=== PATIENT | male | born 1995 | race Caucasian/White ===

== ENCOUNTER 2019-04-30 05:19 | Day surgery (SDC) | payer OTHER ==
[2019-04-30] MEDS ORDERED: ALBUTEROL SULFATE 0.083% NEB 2.5 MG/3 ML AMPUL NEB ONE (05:51)
[2019-04-30] MEDS ORDERED: FENTANYL CITRATE INJ/PF 250 MCG/5 ML AMPULE ONE (07:04)
[2019-04-30] MEDS ORDERED: LIDOCAINE 2% INJ-PF (100 MG/5 ML) SYRINGE ONE (07:04)
[2019-04-30] MEDS ORDERED: PROPOFOL INJ 200 MG/20 ML VIAL IV ONE (07:05)
[2019-04-30] MEDS ORDERED: HYDROMORPHONE HCL INJ/PF 2 MG/ML AMPULE ONE (07:05)
[2019-04-30] MEDS ORDERED: MIDAZOLAM 2 MG/2 ML INJ ONE (07:05)
[2019-04-30] MEDS ORDERED: BUPIVACAINE HCL 0.5 % INJ/PF 30 ML SDV ONE (07:16)
[2019-04-30] MEDS ORDERED: CEFAZOLIN 2 GM/D5W RTU 2 GM/50 ML RTUPB IV ONE (07:20)
[2019-04-30] MEDS ORDERED: DIPHENHYDRAMINE HCL 50 MG/ML VIAL IV PRN (09:05)
[2019-04-30] MEDS ORDERED: FENTANYL CITRATE INJ/PF 100 MCG/2 ML AMPUL IV PRN ×3 (09:05)
[2019-04-30] MEDS ORDERED: MEPERIDINE HCL/PF INJ 25 MG/1 ML DISP.SYRIN IV PRN (09:05)
[2019-04-30] MEDS ORDERED: PROMETHAZINE HCL INJ 25 MG/1 ML VIAL IV PRN ×2 (09:05)
[2019-04-30] MEDS ORDERED: LIDOCAINE 2%/EPINEPHRINE INJ 20 ML VIAL ONE (09:37)
[2019-04-30] MEDS ORDERED: LIDOCAINE 2% INJ (20 MG/ML) 20 ML MDV ONE (09:37)
[2019-04-30] MEDS ORDERED: ROPIVACAINE HCL 0.5% INJ/PF (5 MG/1 ML) 30 ML SDV ONE (09:37)
[2019-04-30] MEDS ORDERED: OXYCODONE-ACETAMINOPHEN 5-325 MG TABLET PO PRN (09:55)
[2019-04-30] MEDS ORDERED: ONDANSETRON HCL INJ/PF 4 MG/2 ML SDV IV PRN (09:56)
--- NOTE | 2019-04-30 10:20 | OPERATIVE REPORT E ---
Operative Report NAME: SUSAN CARDOZA : 1995 AGE: 23Y DATE OF SURGERY: 04/30/2019 ROOM: PREOPERATIVE DIAGNOSIS: Left wrist scaphoid nonunion with collapse. POSTOPERATIVE DIAGNOSIS: Left wrist scaphoid nonunion with collapse. OPERATION: Left wrist correction of scaphoid nonunion with autogenous distal radius bone graft. SURGEON: NORA PORTILLO M.D. ANESTHESIA: General. BLOOD LOSS: Minimal. COMPLICATIONS: None. IMPLANT: Standard Acutrak screw. 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 It went unrecognized. He returned with persistent pain. It was noted he had a scaphoid nonunion with bone loss and collapse of the scaphoid. DESCRIPTION OF PROCEDURE: Following the induction of general anesthetic and administration of antibiotics, the patient was positioned supine on the operating room table. Bony prominences were padded. A tourniquet was placed proximally on the left arm but not inflated. The left upper extremity was sterilely prepped with ChloraPrep and draped in standard fashion. The arm was exsanguinated and the tourniquet inflated to 100 mm above systolic pressure. Volar approach to the scaphoid was performed. Sharp incision through skin and blunt dissection to the subcutaneous tissue. Care was taken to identify and protect the radial artery. The wrist capsule was identified, as was the pronator quadratus. The pronator was taken off in an L-shaped flap. The wrist ligaments were entered with a ligament-splitting curvilinear approach. At this point the scaphoid was identified. The nonunion site was found. There was sclerosis at the end of the scaphoid and significant bone loss. In order to correct the alignment the wrist was flexed. The 0.062 Tyesha wire was placed on the radius to the lunate, putting the lunate back in its normal position. Extending the wrist over a bolster demonstrated the extent of the deformity of the scaphoid. A rongeur was used to take off the sclerotic bone ends. Curettes were used to curette both ends of the scaphoid. Distal radius bone graft was harvested. A cortical cancellous piece of the volar cortex was removed with osteotomes. Additional cancellous bone graft was harvested with curettes and impacted into both sides of the scaphoid. The cortical cancellous piece was placed as a trapdoor to maintain the correct alignment of the scaphoid. A standard Acutrak screw was then placed in retrograde fashion. It was buried beneath the articular cartilage of the scaphotrapezial joint. The wound was irrigated. The wrist capsule was repaired side to side using 4-0 FiberLoop suture. The pronator was repaired back to the radius with 3-0 Vicryl. Subcutaneous tissue was closed with 3-0 Vicryl. Skin was reapproximated with a Monocryl suture using subcuticular technique and Steri-Strips. A bulky sterile dressing was then applied. The patient tolerated the procedure well without complications and was brought to the recovery room in stable condition. DICTATING PHYSICIAN: NORA PORTILLO M.D. [id number] PHY#: [id number] ID: [id number] JOB#: [id number] ACCT: [id number] cc:NORA PORTILLO M.D. >
[2019-04-30 12:16] VITALS: BP 127/80
--- NOTE | 2019-04-30 15:01 | RADIOLOGY REPORT (SQ) ---
EXAM DESCRIPTION: WRIST LEFT 2 VIEWS; NO CHG FLUORO COMPLETED DATE/TIME: 04/30/2019 2:46 pm; 04/30/2019 2:45 pm REASON FOR STUDY: LEFT SCAPHOID CORRECTION ASST WITH FLUORO IN OR S62.022K DISP FX OF MID 3RD OF NA TORIE BONE OF L WRS, 7THK COMPARISON: None. FLUOROSCOPY TIME: 34 seconds. 3 images saved to PACS. TECHNIQUE: Intra-operative images acquired during surgical procedure to evaluate progress. NUMBER OF IMAGES: 3 images. LIMITATIONS: None. FINDINGS: Images of the wrist acquired during surgical procedure. IMPRESSION: IMAGE(S) OBTAINED DURING PROCEDURE. COMMENT: Quality ID 145: Final reports for procedures using fluoroscopy that document radiation exp osure indices, or exposure time and number of fluorographic images (if radiation exposure indices are not available) Please consult full operative report of the attending physician for description of the procedure. TECHNICAL DOCUMENTATION: JOB ID: [id number] [employer]- All Rights Reserved Reading location - IP/workstation name: [email or web address]
--- NOTE | 2019-04-30 15:01 | RADIOLOGY REPORT (SQ) ---
EXAM DESCRIPTION: WRIST LEFT 2 VIEWS; NO CHG FLUORO COMPLETED DATE/TIME: 04/30/2019 2:46 pm; 04/30/2019 2:45 pm REASON FOR STUDY: LEFT SCAPHOID CORRECTION ASST WITH FLUORO IN OR S62.022K DISP FX OF MID 3RD OF NA TORIE BONE OF L WRS, 7THK COMPARISON: None. FLUOROSCOPY TIME: 34 seconds. 3 images saved to PACS. TECHNIQUE: Intra-operative images acquired during surgical procedure to evaluate progress. NUMBER OF IMAGES: 3 images. LIMITATIONS: None. FINDINGS: Images of the wrist acquired during surgical procedure. IMPRESSION: IMAGE(S) OBTAINED DURING PROCEDURE. COMMENT: Quality ID [id number]: Final reports for procedures using fluoroscopy that document radiation exp osure indices, or exposure time and number of fluorographic images (if radiation exposure indices are not available) Please consult full operative report of the attending physician for description of the procedure. TECHNICAL DOCUMENTATION: JOB ID: [id number] [employer]- All Rights Reserved Reading location - IP/workstation name: [email or web address]
[2019-04-30] MEDS ORDERED: GLYCOPYRROLATE 1 MG/5 ML VIAL ONE (18:12)
[2019-04-30] MEDS ORDERED: SUCCINYLCHOLINE CHLORIDE INJ 200 MG/10 ML VIAL ONE (18:12)
[2019-04-30] MEDS ORDERED: ONDANSETRON HCL INJ/PF 4 MG/2 ML SDV ONE (18:12)
== END 2019-04-30 11:45 | disposition home or self-care (01) ==
LOC: OROUT 05:19
PROVIDERS: ATTEND Orthopaedic Surgery
DX: S62.022K Displaced fracture of middle third of navicular [scaphoid] bone of left wrist, subsequent encounter for fracture with nonunion (principal); W19.XXXD Unspecified fall, subsequent encounter; F17.210 Nicotine dependence, cigarettes, uncomplicated
CPT/HCPCS: 73100; 01830; 25440; C1713; C1769; J2795; J2250; J3490 ×3; J3010; J2001; J1170; J0330; J2405; J2704; J0690